=== PATIENT | male | born 1990 | race Caucasian/White ===

== ENCOUNTER 2023-02-20 17:56 | Emergency (ER) | payer OTHER ==
[2023-02-20] MEDS ORDERED: Lidocaine 1% 5 ML VIAL INJECT ONE (19:39)
[2023-02-20] MEDS ORDERED: Bacitracin Oint 1 GM U/D Packet TOP ONE (19:39)
[2023-02-20] MEDS ORDERED: Diphtheria,Pertussis(Acell),Tetanus Vaccine 0.5 ML Syringe IM ONE (19:42)
== END 2023-02-20 20:22 | disposition home or self-care (01) ==
LOC: JP.ED 17:56
DX: S61.012A Laceration without foreign body of left thumb without damage to nail, initial encounter (principal); Z23 Encounter for immunization; W27.8XXA Contact with other nonpowered hand tool, initial encounter
CPT/HCPCS: 12001; 90471; 90715; 99283-25